=== PATIENT | male | born 1965 | race Caucasian/White ===

== ENCOUNTER 2025-06-07 23:01 | Emergency (ER) | payer OTHER, SELFPAY ==
[2025-06-07 23:06] VITALS: BP 152/76
[2025-06-07 23:23] LABS: Hematocrit 42.0 % (39.0-52.0); Hemoglobin 14.2 g/dL (13.0-18.0); Mean Corp Hgb Conc. 33.8 g/dL (33.0-37.0); Mean Corpuscular Volume 83.5 fL (80.0-94.0); Nucleated Red Blood Cells % 0 % (-); Platelet Count 281 10^3/uL (130-400); Red Cell Dist. Width 13.0 % (11.5-14.5)
[2025-06-07 23:40] LABS: ALT (SGPT) 26 U/L (0-50); AST (SGOT) 27 U/L (17-59); Albumin 4.5 g/dl (3.5-5.0); Alkaline Phosphatase 52 U/L (38-126); Blood Urea Nitrogen 24 mg/dl (9-20); Calcium 9.1 mg/dl (8.4-10.2); Carbon Dioxide 29 mmol/L (22-30); Chloride 105 mmol/L (98-107); Glucose 185 mg/dl (70-99); Potassium 4.0 mmol/L (3.5-5.1); Sodium 139 mmol/L (135-145); Total Protein 6.9 g/dl (6.3-8.2); eGFR > 60.00
[2025-06-07 23:47] LABS: Urine Character Cloudy (Clear)
[2025-06-08] LABS: Urine Red Blood Cell >100 /HPF (0-2)
[2025-06-08 00:02] LABS: Urine Squamous Cell 0-2 /LPF (Few)
--- NOTE | 2025-06-08 02:38 | ED.GENMED ---
History of Present Illness
General
Chief Complaint: Flank Pain
Source: patient
Exam Limitations: none
Time Seen by Provider: 06/08/25 02:34
Nursing documentation reviewed up to this point in time: agreed with
History of Present Illness
History of Present Illness:
60-year-old male no past medical history presents emergency department with concerns of left flying pain in one hour prior to arrival. Patient has never had pain like this before. Patient was diagnosed with bladder stones in the past but apparently
he has never had renal stones. Patient denies any nausea vomiting. Patient denies any fevers or chills. Patient denies any burning with urination. Patient does not currently follow with urology. Patient note some pink tinged urine. Patient denies
any shortness of breath. He denies any chest pain, sick contacts.
Phy Exam
General Physical Exam
General Presentation: well appearing and no apparent distress
General age: appears stated age
General Skin: warm and dry
General Habitus: normal
General Hydration: appears well hydrated
Cardiovascular Exam
Cardiovascular Exam: regular rate/rhythm
Pulmonary Exam
Pulmonary Exam: lungs clear and no respiratory distress
Gastrointestinal Exam
Gastrointestinal Exam: normal bowel sounds, non tender, soft, no pulsatile mass and non distended
Neurological Exam
Neurological Exam: alert and oriented x3
Skin Exam
Skin Exam: normal color
Psychiatric Exam
Psychiatric Exam: normal mood/affect
Course
Orders/Labs/Results
Orders:
Orders
06/07/25 23:16
CBC/With Diff [Complete Blood Count/With Diff] Urgent
Comprehensive Metabolic Panel Urgent
06/07/25 23:22
Urinalysis Urgent
Date Specimen was Collected: 06/07/25
Time Specimen was Collected: 23:09
Urine Microscopic Urgent
Date Specimen was Collected: 06/07/25
Time Specimen was Collected: 23:09
06/08/25 02:52
CT Abd/pel Without Iv Or Oral Urgent
Comment:
Reason For Exam: left flank pain
0.9% Sodium Chloride 500 ml [Nss] 500 ml IV BOLUS
Ketorolac [Toradol] 15 mg IV NOW STA
Abnormal Lab Results
06/07/25 06/07/25
23:16 23:22
BUN 24 H mg/dl
(9-20)
Glucose 185 H mg/dl
(70-99)
Urine Occult Blood 4+ A
(Negative)
Ur Leukocyte Esterase 1+ A
(Negative)
Urine RBC >100 A /HPF
(0-2)
Urine Bacteria Few A
(Negative)
Urine Albumin 3+ A
(Neg - Trace)
06/07/25 23:16
06/07/25 23:16
Vital Signs
Initial and Last Documented VS:
Initial Vital Signs
Temp Pulse Resp BP Pulse Ox
99 F 68 20 152/76 98
06/07/25 23:06 06/07/25 23:06 06/07/25 23:06 06/07/25 23:06 06/07/25 23:06
Last Documented Vital Signs
Temp Pulse Resp BP Pulse Ox
99 F 68 20 152/76 98
06/07/25 23:06 06/07/25 23:06 06/07/25 23:06 06/07/25 23:06 06/08/25 02:39
MDM/Problems Addressed
Differential Diagnosis Includes:
renal stone, diverticulitis, muscle strain, pyelo, aortic aneurysm
MDM/Problems Addressed:
60 y.o male presents with left flank pain. Found to have small left uvj stone with mild hydro. Renal function normal. Afebrile no wbc count no uti symptoms. Will initiate flomax. Pain well controlled. Discussed strict return precautions. Patient
stable for dishcarge. Discussed urology follow up
*Pulse Oximetry
SaO2: 98
Patient hypoxic: no
*Critical Care Note
Total Time (30-74mins, 75-104mins- exclusive of procedures): Not Applicable
ED Attending Note
-
Portions of this chart may have been created with voice recognition software.� Occasional wrong word or��sound alike� substitutions may have occurred due to the inherent limitations of voice recognition software.
Discharge Plan
Departure
Patient Disposition: Home (Routine Discharge)
Date of Disposition: 06/08/25
Time of Disposition: 05:11
Patient with high blood pressure during this ER visit?: Yes
Condition: Good
Discharge Problem:
Left ureteral stone
Instructions: Flank Pain (DC), How to Strain Your Urine, BLOOD PRESSURE
Prescriptions:
New
tamsulosin [Flomax] 0.4 mg capsule
0.4 mg PO DAILY Qty: 8 0RF
Referrals:
Brad Harrington MD [Active, Urology] - Call in 1-3 days for appt
Jermaine Moreira MD [Family Provider, Family Practice]
Activity Restrictions/Additional Instructions:
Please take 1 tablet once daily until stone passage. Please strain your urine. Please follow-up with your primary care provider. PLEASE RETURN EMERGENCY DEPARTMENT IMMEDIATELY SHOULD YOU DEVELOP FEVERS OR CHILLS, BURNING WITH URINATION, ACUTE
WORSENING OF YOUR PAIN, INTRACTABLE NAUSEA OR VOMITING, OR ANY OTHER SIGNS OR SYMPTOMS RECENTLY.
Interventions
Interventions:
*Risk Screen - Suicide Last Done: 06/07/25 23:06
*General Assessment Last Done: 06/08/25 04:17
*Neglect/Abuse Screening Last Done: 06/07/25 23:06
*ED- Fall Risk Assessment Last Done: 06/08/25 04:17
*ED COVID-19 Vaccine History Last Done: 06/08/25 04:17
*Nursing Disposition Last Done: 06/08/25 06:04
WS-Eiynmd-Jhvngyqcoh Assessment Last Done: 06/08/25 04:17
ED-Male Genitourinary Assessment Last Done: 06/08/25 04:17
Discharge Date and Time
Discharge Date/Time: 06/08/25 06:04
Print Language: NEPALI
[2025-06-08] MEDS: NSS 500 IV (03:16)
[2025-06-08] MEDS: TORADOL 15 MG IV (03:16)
== END 2025-06-08 06:04 | disposition home or self-care (01) ==
LOC: EMR 23:01
PROVIDERS: EMERGENCY PHYSICIAN Emergency Medicine; FAMILY PHYSICIAN Family Medicine
DX: N13.2 Hydronephrosis with renal and ureteral calculous obstruction (principal)
CPT/HCPCS: 96374; 96361; 99284; 74176; 80053; 81003; 81015; 85025